=== PATIENT | male | born 1995 | race Caucasian/White ===

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

== ENCOUNTER 2018-08-10 13:15 | Emergency (ER) | payer OTHER ==
[~2018-08-10] VITALS: Ht 182.8 cm; Wt 90.7 kg
--- NOTE | ~2018-08-10 | EKG ---
[place], [place] ELECTROCARDIOGRAM REPORT NAME: VIRGEN CRUZ UNIT #: [id number] ROOM: DOCTOR: EPIPHANY DRAFT REPORT BIRTHDATE: [birth year] [facility] Test Date: 2018-08-10 Test Time: 17:34:07 Pat Name: VIRGEN CRUZ Department: Room: Gender: Site Reliability Engineer: : 1995 Requested By: ERIS RUBIN Order Number: [id number] Reading MD: Ambrosio Garcia MD Measurements Intervals [place] Rate: 124 P: 41 SC: 151 QRS: 56 QRSD: 81 T: 2 QT: 312 QTc: 448 Interpretive Statements Sinus tachycardia Electronically Signed On 08-11-2018 12:01:32 PDT by Ambrosoi Garcia MD CM:EKGRPT:ELECTROCARDIOGRAM REPORT [id number] ERIS RUBIN EPIPHANY DRAFT REPORT ERIS RUBIN
[2018-08-10 13:15] VITALS: BP 126/71
[2018-08-10 13:56] LABS: BASO % 0.2 % (0.0-1.0); EOS # 0.5 10*3/uL (0.0-0.4); EOS % 2.4 % (1.0-4.0); HEMOGLOBIN 15.1 g/dl (14.0-18.0); LYMPH # 0.7 10*3/uL (1.3-4.4); LYMPH % 3.5 % (27.0-41.0); MEAN CORPUSCULAR HGB 29.8 pg (27.0-31.0); MEAN CORPUSCULAR HGB CONC 34.3 g/dl (33.0-37.0); MONO # 0.7 10*3/uL (0.1-1.0); MONO % 3.4 % (3.0-9.0); NEUT # 17.3 10*3/uL (2.3-7.9); NEUT % 89.9 % (47.0-73.0); PLATELET COUNT AUTOMATED 348 10*3/uL (130-400); RED BLOOD COUNT 5.06 10*6/uL (4.50-5.90); RED CELL DISTRI WIDTH 12.8 % (0-14.5); WHITE BLOOD COUNT 19.3 10*3/uL (4.8-10.8)
[2018-08-10 14:10] LABS: ALKALINE PHOSPHATASE 97 U/L (45-117); BUN 10 mg/dl (7-24); CHLORIDE 98 mmol/L (98-107); CREATININE 0.88 mg/dL (0.70-1.30); POTASSIUM 4.2 mmol/L (3.5-5.1); SGOT/AST 10 IU/L (3-35); SGPT/ALT 30 U/L (12-78); SODIUM 135 mmol/L (136-145); TOTAL PROTEIN 7.7 gm/dL (6.4-8.2)
[2018-08-10 15:45] LABS: BILIRUBIN NEGATIVE (NEGATIVE); BLOOD NEGATIVE (NEGATIVE); CLARITY CLEAR (CLEAR); COLOR YELLOW (YELLOW); GLUCOSE NEGATIVE (NEGATIVE); KETONE NEGATIVE (NEGATIVE); LEUKO ESTERASE NEGATIVE (NEGATIVE); NITRITE NEGATIVE (NEGATIVE); PH 5.5 (5.0-9.0); SPECIFIC GRAVITY <= 1.005 (1.005-1.030)
[2018-08-10 15:58] LABS: EPITHELIAL CELLS 0-2
== END 2018-08-10 17:41 | disposition home or self-care (01) ==
LOC: ED 13:15
PROVIDERS: Emergency Medicine; Student in an Organized Health Care Education/Training Program
DX: B34.9 Viral infection, unspecified (principal); R00.0 Tachycardia, unspecified; D72.829 Elevated white blood cell count, unspecified; L55.9 Sunburn, unspecified; E66.01 Morbid (severe) obesity due to excess calories; Z88.0 Allergy status to penicillin; Z88.1 Allergy status to other antibiotic agents; Z79.899 Other long term (current) drug therapy

== ENCOUNTER → 2021-03-14 | Outpatient (CLI) | payer OTHER | END | disposition home or self-care (01) | LOC: COVID19 15:03 | PROVIDERS: ATTEND Internal Medicine | DX: U07.1 COVID-19 (principal) ==

== ENCOUNTER 2022-05-24 17:39 | Emergency (ER) | payer OTHER ==
[~2022-05-24] VITALS: Wt 89.4 kg
[2022-05-24 17:46] VITALS: BP 146/84
[2022-05-24] MEDS ORDERED: Motrin,Rufen800 MG PO (19:56)
[2022-05-24] MEDS ORDERED: CYCLOBENZAPRINE5 M3 PO (19:56)
== END 2022-05-24 20:11 | disposition home or self-care (01) ==
LOC: ED 17:39
DX: S01.81XA Laceration without foreign body of other part of head, initial encounter (principal); S66.912A Strain of unspecified muscle, fascia and tendon at wrist and hand level, left hand, initial encounter; M79.641 Pain in right hand; K21.9 Gastro-esophageal reflux disease without esophagitis; I10 Essential (primary) hypertension; J45.909 Unspecified asthma, uncomplicated; Z88.0 Allergy status to penicillin; Z88.1 Allergy status to other antibiotic agents; Z88.8 Allergy status to other drugs, medicaments and biological substances; Z87.442 Personal history of urinary calculi; V43.52XA Car driver injured in collision with other type car in traffic accident, initial encounter; Y93.89 Activity, other specified; Y92.410 Unspecified street and highway as the place of occurrence of the external cause; Y99.8 Other external cause status